=== PATIENT | female | born 1945 ===

== ENCOUNTER 2021-06-19 07:03 | Day surgery (SDC) | payer OTHER ==
[~2021-06-19 07:03] MED LIST: NEURONTIN300 MG PO; SYNTHROID88 MCG PO; TOPROL XL50 M1 PO
== END 2021-06-19 12:35 | disposition home or self-care (01) ==
LOC: CIR.AMB 07:03
PROVIDERS: ATTEND Orthopaedic Surgery Hand Surgery
DX: M65.331 Trigger finger, right middle finger (principal); Z20.822 Contact with and (suspected) exposure to COVID-19